=== PATIENT | female | born 1940 | race Caucasian/White ===

== ENCOUNTER 2019-08-24 12:27 | Outpatient (CLI) | payer MEDICARE, OTHER, SELFPAY ==
--- NOTE | 2019-08-24 12:30 | IR_ITS ---
WS: [id number] MYELOGRAM CERVICAL SPINE Fluoroscopic guided cervical myelogram CLINICAL INFORMATION: Neck pain. S/P fusion/fixation COMPARISON: None. TECHNIQUE: The procedure, including risks, benefits, and complications, were discussed with the patie nt who agreed to proceed. A timeout was performed to confirm correct patient, procedure, and site. Using sterile technique, the patient was prepped and draped in the usual sterile fashion. After admin istration of local anesthesia using 1% preservative-free lidocaine and using fluoroscopic guidance, a 22-gauge spinal needle was advanced into the subarachnoid space at the L4-5 level. Subsequently 13 c c of Omnipaque 300 was administered into the thecal sac. The needle was removed and hemostasis was ac hieved. Subsequently the table was tilted down and contrast flowed freely into the cervical spine. Sp ot fluoroscopic images were obtained. FLUOROSCOPIC TIME: 1.5 minutes. Spot fluoroscopic images demonstrate osteopenia. Straightening of the normal cervical lordosis. Sligh t anterolisthesis C2 on C3 measuring 3.5 mm in neutral. No instability on flexion-extension. Slight reversal of the normal cervical lordosis. Anterior cervical fusion C3-C6.Grade 1 anterolisthes is C7 on T1 measuring 4 mm in neutral. This is unchanged in flexion and decreases slightly in extensi on to 3.5 mm Normal prevertebral soft tissues. Please see CT myelogram report for additional detail. IR/IR myelogram sp cervical [id number] IMPRESSION: 1. Straightening with slight reversal of the normal cervical lordosis. 2. Anterior cervical fusion C3-C6. 3. Osteopenia. 4. Slight anterolisthesis C2 on C3 measuring 3.5 mm in neutral. No instability on flexion-extension. 5. 4 mm anterolisthesis C7 on T1 in neutral which is unchanged in flexion. Thi s decreases slightly in extension measuring 3.5 mm. 6. Please see CT report for further anatomic detail.
--- NOTE | 2019-08-24 12:30 | CT_ITS ---
WS: [id number] CT CERVICAL MYELOGRAM TECHNIQUE: CT of the cervical spine coronal and sagittal reformatted images post intrathecal administ ration of contrast. CLINICAL INFORMATION: Neck pain. S/P fusion/fixation COMPARISON: MRI November 02, 2018 DLP: 334.[address] scans at [facility] use at least one of these dose optimization techniques: automat ed exposure control; mA and/or kV adjustment per patient size (includes targeted exams where dose is matched to clinical indication); or iterative reconstruction. FINDINGS: Straightening with slight reversal normal cervical lordosis. Slight anterolisthesis C2 on C3 and C7 o n T1. Anterior and dorsal bony fusion C3-C5. Disc space narrowing C5-C6 and C6-C7. Solid appearing fusion mass at C3-C5. Degenerative cystic carrillo e involving the dens. Pannus formation at the C1-2 articulation. C2-C3: Slight anterolisthesis C2 on C3. Mild disc bulging with osteophytic ridging. Moderate left fac et arthropathy. Mild left and no significant right foraminal narrowing. C3-C4: Solid anterior cervical fusion. Solid appearing dorsal element fusion. Spinal canal is patent. Mild right and no significant left foraminal narrowing. Moderate left facet arthropathy. C4-C5: Disc osteophyte complex with endplate ridging. Mild/moderate left and no significant right for aminal narrowing. Spinal canal is patent. Mild facet arthropathy. C5-C6: Disc osteophyte complex with endplate ridging. Moderate bilateral bony foraminal narrowing. Mi ld facet arthropathy. Spinal canal is patent. C6-C7: Mild disc osteophyte complex. Spinal canal is patent. Moderate facet arthropathy. Mild bilater al bony foraminal narrowing. C7-T1: Slight anterolisthesis C7 on T1 with moderate bilateral facet arthropathy. Mild central canal stenosis. Moderate bilateral bony foraminal narrowing. Visualized posterior fossa structures: Normal. CT/CT cervical spine w con [id number] IMPRESSION: 1. Straightening with slight reversal normal cervical lordosis. Anterolisthes is C2 on C3 measuring 2.3 mm and C7 on T1 measuring 3.9 mm. 2. Anterior interbody and dorsal element fusion C3-C5 with solid appearing fus ion. 3. Disc desiccation with disc space narrowing C5-C6 and C6-C7. 4. Mild central canal stenosis C7-T1 with moderate bilateral foraminal narrowi ng. 5. Mild to moderate bony foraminal narrowing worse at right C5-C6, bilateral C 6-C7, and bilateral C7-T1. 6. Moderate facet arthropathy worse at left C2-3, bilateral C6-C7, and bilater al C7-1.
[2019-08-24 12:57] LABS: INR 1.04 (0.8-1.2)
[2019-08-24] MEDS: iohexol 300 mg/mL 50 mL Btl IV (14:28)
== END 2019-08-24 12:28 | disposition home or self-care (01) ==
PROVIDERS: Family Provider Family Medicine; PCP Family Medicine; Visit Provider Licensed Practical Nurse
DX: M50.00 Cervical disc disorder with myelopathy, unspecified cervical region (principal); M48.02 Spinal stenosis, cervical region; Z98.1 Arthrodesis status; Z98.890 Other specified postprocedural states; Z79.01 Long term (current) use of anticoagulants
CPT/HCPCS: 36415; 62302; 72040; 72126; 85610

== ENCOUNTER → 2019-10-18 09:21 | Outpatient (BNVA) | payer MEDICARE, OTHER, SELFPAY | PROVIDERS: Family Provider Family Medicine; PCP Family Medicine; Referring Provider Specialist; Visit Provider Anesthesiology Pain Medicine | DX: M54.2 Cervicalgia (principal); M79.18 Myalgia, other site; Z79.891 Long term (current) use of opiate analgesic | CPT/HCPCS: 20553; 99204; J1030; J3490 ==

== ENCOUNTER → 2019-11-02 12:51 | Outpatient (BNVA) | payer MEDICARE, OTHER, SELFPAY | PROVIDERS: Family Provider Family Medicine; PCP Family Medicine; Visit Provider Anesthesiology Pain Medicine | DX: M54.2 Cervicalgia (principal); M62.830 Muscle spasm of back; Z79.891 Long term (current) use of opiate analgesic | CPT/HCPCS: 64490; 64491; 64492; 85610; J2001; J3490 ==

== ENCOUNTER → 2019-11-14 10:37 | Outpatient (BNVA) | payer MEDICARE, OTHER, SELFPAY | PROVIDERS: Family Provider Family Medicine; PCP Family Medicine; Visit Provider Anesthesiology Pain Medicine | DX: M54.2 Cervicalgia (principal); Z79.891 Long term (current) use of opiate analgesic | CPT/HCPCS: 99212; 99213 ==

== ENCOUNTER → 2020-12-24 09:47 | Outpatient (BNVA) | payer MEDICARE, OTHER, SELFPAY | PROVIDERS: Family Provider Family Medicine; PCP Family Medicine; Visit Provider Orthopaedic Surgery | DX: M19.012 Primary osteoarthritis, left shoulder (principal); M25.512 Pain in left shoulder | CPT/HCPCS: 73030 ==

== ENCOUNTER → 2021-08-27 15:20 | Outpatient (BNVA) | payer MEDICARE, OTHER, SELFPAY | PROVIDERS: Family Provider Family Medicine; PCP Family Medicine; Visit Provider Internal Medicine Cardiovascular Disease | DX: R00.2 Palpitations (principal); R07.82 Intercostal pain; Z86.73 Personal history of transient ischemic attack (TIA), and cerebral infarction without residual deficits; E03.9 Hypothyroidism, unspecified; M50.10 Cervical disc disorder with radiculopathy, unspecified cervical region; I10 Essential (primary) hypertension | CPT/HCPCS: 99213 ==

== ENCOUNTER → 2022-10-30 09:54 | Outpatient (BNVA) | payer MEDICARE, OTHER, SELFPAY | PROVIDERS: Family Provider Family Medicine; PCP Family Medicine; Visit Provider Internal Medicine Cardiovascular Disease | DX: R07.82 Intercostal pain (principal); I10 Essential (primary) hypertension; Z86.73 Personal history of transient ischemic attack (TIA), and cerebral infarction without residual deficits | CPT/HCPCS: 99214 ==

== ENCOUNTER 2023-03-17 12:42 | Outpatient (CLI) | payer MEDICARE, OTHER, SELFPAY ==
--- NOTE | 2023-03-17 14:00 | USCV_ITS ---
Jaylene Moreno Age: 82 Gender: F : 1940 Exam Date: 03/17/2023 13:24 Ordering Phys: Shahnaz Glover MD ([email or web address]) Technologist: Adam Newberry [place] [facility] [place]: Systolic murmur BP: 130 / 80 HR: 71 Rhythm: Sinus Technical Quality: Adequate MEASUREMENTS (Male / Female) Normal Values 2D ECHO LV Diastolic Diameter PLAX 4.1 cm 4.2 - 5.9 / 3.9 - 5.3 cm LV Systolic Diameter PLAX 2.6 cm IVS Diastolic Thickness 0.9 cm 0.6 - 1.0 / 0.6 - 0.9 cm IVS Systolic Thickness 1.4 cm LVPW Diastolic Thickness 0.9 cm 0.6 - 1.0 / 0.6 - 0.9 cm LVPW Systolic Thickness 1.2 cm LVOT Diameter 2.0 cm LV Ejection Fraction 2D Teich 67.7 % LA Diameter 3.3 cm IVC Diameter 1.3 cm M-MODE Aortic Annulus Diameter 3.3 cm LA Ao Ratio MM 1.1 MV E Point Septal Separation 0.7 cm DOPPLER AV Peak Velocity 249.0 cm/s LVOT Peak Velocity 99.0 cm/s AV Area Cont Eq vti 1.2 cm squared AV Area Cont Eq pk 1.3 cm squared MV Area PHT 5.0 cm squared Mitral E to A Ratio 0.9 MV E' Velocity 87.0 cm/s TR Peak Velocity 281.0 cm/s TR Peak Gradient 31.6 mmHg TV Peak E Velocity 104.0 cm/s Right Atrial Pressure 3.0 mmHg Pulmonary Artery Systolic Pressu 34.6 mmHg RV Acceleration Time 0.1 s FINDINGS Left Ventricle Normal left ventricular size, systolic function and wall thickness, with no regional wall motion abnormalities. Left ventricular ejection fraction is estimated at 65 %. Normal mitral inflow pattern. Right Ventricle Normal right ventricular size and systolic function. Right ventricular systolic pressure 34.6 mmHg. Right Atrium Normal right atrial size. Left Atrium Normal left atrial size. Mitral Valve Mild mitral annular calcification. Structurally normal mitral valve. No mitral valve stenosis. Trace mitral valve regurgitation. Aortic Valve Mildly thickened and calcified trileaflet aortic valve. Aortic valve sclerosis without stenosis or regurgitation. Tricuspid Valve Structurally normal tricuspid valve. No tricuspid valve stenosis. Mild tricuspid valve regurgitation. Pulmonic Valve Structurally normal pulmonic valve. No pulmonary valve stenosis. No pulmonary valve regurgitation. Pericardium No pericardial effusion. Aorta Normal size aortic root and proximal ascending aorta. IVC Normal IVC dimension with >50% respiratory change of the inferior vena cava. CONCLUSIONS 1. Normal left ventricular size, systolic function and wall thickness, with no regional wall motion abnormalities. Left ventricular ejection fraction is estimated at 65 %. Normal mitral inflow pattern. 2. Mild tricuspid valve regurgitation. 3. Aortic valve sclerosis without stenosis or regurgitation. 4. No prior similar studies to compare. Shahnaz Glover MD (Electronically Signed) Final Date: 19 March 2023 11:52 S
== END 2023-03-17 12:43 | disposition home or self-care (01) ==
PROVIDERS: PCP Family Medicine; Visit Provider Internal Medicine Cardiovascular Disease
DX: R01.1 Cardiac murmur, unspecified (principal); Z86.73 Personal history of transient ischemic attack (TIA), and cerebral infarction without residual deficits; I08.2 Rheumatic disorders of both aortic and tricuspid valves
CPT/HCPCS: 93306

== ENCOUNTER → 2023-09-23 09:24 | Outpatient (BNVA) | payer MEDICARE, OTHER, SELFPAY | PROVIDERS: PCP Family Medicine; Visit Provider Nurse Practitioner Family | DX: I10 Essential (primary) hypertension (principal) | CPT/HCPCS: 99214 ==